=== PATIENT | female | born 1930 | race Caucasian/White ===

== ENCOUNTER 2016-09-13 22:38 | Emergency (ER) | payer MEDICARE, MEDICAID ==
[~2016-09-13] VITALS: Ht 157.5 cm; Wt 52.7 kg
[~2016-09-13 22:38] MED LIST: ALREX0.2 % OP; ARICEPT5 MG PO; CALCIUM +D PO; CALCIUM OR; CLONAZEP ODT1 MG OR; CLONAZEP ODT1 MG PO; CLONAZEPAM1 MG PO; CO Q10100 MG OR; COMBIVENT IN; COMBIVENT INH; ENALAPRIL10 MG PO; FLULAVAL IM; FLUZONE SPLT1 M1 IM; HYDROCHLORO25 MG/TAB PO; HYDROCHLOROT25 MG PO; HYDROCO/APAP1 TA9 PO; HYDROCO/APAP1 TAB PO; LEVOTHROID100 MCG PO; LEVOTHYROXIN100 MC1 PO; LEVOTHYROXIN75 MCG PO; LORTAB 5 PO; LORTAB 5/3255 MG PO; LORTAB5 OR; LUTEIN PO; PAROXETIN ER12.5 MG PO; PAROXETINE10 MG PO; PAXIL CR12.5 MG OR; PRAVASTATIN10 MG PO; RESTORIL30 MG OR; RESTORIL30 MG PO; TEMAZEPAM30 MG PO; TRAMADOL HCL100 MG PO; TRAMADOL HCL50 MG PO; TYLENOL # 31 TA1 PO; ULTRAM50 MG OR; ULTRAM50 MG PO; VYTORIN1 TA3 OR; ZOLOFT25 MG PO; [UNRECOGNIZED DRUG - CODE] PO; [UNRECOGNIZED DRUG - OTHER] OR
[2016-09-14 00:52] LABS: HEMATOCRIT 37.1 % (37.0-47.0); HEMOGLOBIN 11.7 g/dl (12.0-16.0); IMMATURE GRANULOCYTES 0.3 % (0.0-1.0); MEAN CELL VOLUME 94.2 fL CALC (80.0-100.0); MEAN CORPUSCULAR HGB 29.7 pG CALC (26.0-32.0); MEAN CORPUSCULAR HGB CONC 31.5 g/L CALC (32.0-36.0); NEUT# 4.03 thou/uL (2.00-7.15); RED BLOOD COUNT 3.94 mill/uL (4.20-5.60); RED CELL DISTRI WIDTH 13.4 % (11.5-15.5)
[2016-09-14 01:18] LABS: PROTHROMBIN TIME 10.7 SECONDS (9.0-12.5)
[2016-09-14 01:19] LABS: ALBUMIN 3.8 g/dL (3.2-5.0); BILIRUBIN, TOTAL 0.4 mg/dL (0.0-1.4); CALCIUM 9.2 mg/dL (8.4-10.2); CREATININE 1.4 mg/dL (0.5-1.0); POTASSIUM 3.7 mmol/l (3.5-5.1); TOTAL PROTEIN 6.4 g/dL (6.3-8.2)
[2016-09-14 06:45] VITALS: BP 165/84
== END 2016-09-14 07:02 | disposition home or self-care (01) ==
LOC: ED 22:38
PROVIDERS: Emergency Medicine
DX: R23.3 Spontaneous ecchymoses (principal); E78.5 Hyperlipidemia, unspecified; F32.9 Major depressive disorder, single episode, unspecified; E03.9 Hypothyroidism, unspecified; Z86.73 Personal history of transient ischemic attack (TIA), and cerebral infarction without residual deficits

== ENCOUNTER 2016-09-16 22:50 | Emergency (ER) | payer MEDICARE, MEDICAID ==
[~2016-09-16] VITALS: Ht 157.5 cm; Wt 52.7 kg
[2016-09-16 23:39] VITALS: BP 168/78
== END 2016-09-16 23:39 | disposition home or self-care (01) ==
LOC: ED 22:50
DX: S51.811A Laceration without foreign body of right forearm, initial encounter (principal); X58.XXXA Exposure to other specified factors, initial encounter; Y92.009 Unspecified place in unspecified non-institutional (private) residence as the place of occurrence of the external cause

== ENCOUNTER 2016-12-22 14:05 | Emergency (ER) | payer MEDICARE, MEDICAID ==
[~2016-12-22] VITALS: Ht 157.5 cm; Wt 59.0 kg
[2016-12-22] MEDS ORDERED: EC-NAPROSYN500 MG PO (15:20)
[2016-12-22 16:20] VITALS: BP 171/73
== END 2016-12-22 16:20 | disposition home or self-care (01) ==
LOC: ED 14:05
DX: S42.031A Displaced fracture of lateral end of right clavicle, initial encounter for closed fracture (principal); E78.5 Hyperlipidemia, unspecified; F32.9 Major depressive disorder, single episode, unspecified; E03.9 Hypothyroidism, unspecified; W01.0XXA Fall on same level from slipping, tripping and stumbling without subsequent striking against object, initial encounter; Y92.009 Unspecified place in unspecified non-institutional (private) residence as the place of occurrence of the external cause; Z86.73 Personal history of transient ischemic attack (TIA), and cerebral infarction without residual deficits

== ENCOUNTER 2017-03-03 14:36 | Observation (INO) | payer MEDICARE, MEDICAID ==
[~2017-03-03] VITALS: Ht 165.1 cm; Wt 42.3 kg
[~2017-03-03 14:36] MED LIST changes: +EC-NAPROSYN500 MG PO
--- NOTE | 2017-03-03 14:45 | NUR ---
PT ARRIVES TO ROOM WITH LEFT ARM NUMBNESS, WEAKNESS, R/O CVA. PT TO CT IMMEDIATELY, BACK TO ROOM WHERE IV WAS ESTABLISHED TO LEFT NECK, BLOOD DRAWN. STROKE ALERT CALLED.
[2017-03-03 15:27] LABS: HEMATOCRIT 37.3 % (37.0-47.0); HEMOGLOBIN 11.7 g/dl (12.0-16.0); IMMATURE GRANULOCYTES 0.4 % (0.0-1.0); MEAN CELL VOLUME 95.4 fL CALC (80.0-100.0); MEAN CORPUSCULAR HGB 29.9 pG CALC (26.0-32.0); MEAN CORPUSCULAR HGB CONC 31.4 g/L CALC (32.0-36.0); NEUT# 4.74 thou/uL (2.00-7.15); RED BLOOD COUNT 3.91 mill/uL (4.20-5.60); RED CELL DISTRI WIDTH 13.5 % (11.5-15.5)
[2017-03-03 15:44] LABS: INTERNATIONAL NORMALIZED RATIO 0.9 RATIO (0.7-1.3); PROTHROMBIN TIME 10.4 SECONDS (9.0-12.5)
[2017-03-03 16:07] LABS: CALCIUM 9.5 mg/dL (8.4-10.2); CREATININE 1.5 mg/dL (0.5-1.0); POTASSIUM 4.3 mmol/l (3.5-5.1)
[2017-03-03] MEDS ORDERED: ARICEPT5 MG PO (16:27)
[2017-03-03] MEDS ORDERED: CLONAZEPAM1 MG PO (16:30)
[2017-03-03] MEDS ORDERED: NAMENDA10 MG PO (16:31)
--- NOTE | 2017-03-03 16:40 | NUR ---
SBAR PRINTED TO FLOOR
--- NOTE | 2017-03-03 16:47 | NUR ---
DTR IN LAW CONTACTED BY PHONE TO UPDATE HER AND HER LISETTE (SON). THEY WILL BE IN TO VISIT LATER ON TONIGHT. PT IS FULLY ALERT NOW, ASKS HOW SHE GOT HERE AND WHO CALLED AMBULANCE.
[2017-03-03 17:02] LABS: URINE BILIRUBIN - DIPSTICK NEGATIVE (NEGATIVE); URINE BLOOD DIPSTICK TRACE-INTACT (NEGATIVE); URINE COLOR YELLOW; URINE GLUCOSE - DIPSTICK NEGATIVE (NEGATIVE); URINE KETONE NEGATIVE (NEGATIVE); URINE LEUK ESTERASE NEGATIVE (NEGATIVE); URINE NITRITE - DIPSTICK NEGATIVE (Negative); URINE PROTEIN - DIPSTICK NEGATIVE (NEG-TRACE); URINE UROBILINOGEN - DIPSTICK 0.2 E.U./dL (0.2)
[2017-03-03 17:05] LABS: URINE CLARITY CLEAR
--- NOTE | 2017-03-03 17:20 | NUR ---
Admission Note Report Given to: SBAR PRINTED TO FLOOR Transported by: Wheelchair X Stretcher Transported with: X Nurse Transporter X Patent IV O2 X Fishing Tool Operator
[2017-03-03 17:25] VITALS: BP 186/94
--- NOTE | 2017-03-03 17:25 | NUR ---
PT ON FLOOR VIA STRETCHER WITH DIAZ DUNHAM AT 1725. PT AMBULATED TO BED. PT ORIENTED TO ROOM AND CALL LIGHT SYSTEM. PT EDUCATED ON CALLING FOR ASSISTANCE. NO COMPLAINTS OF PAIN FROM PT. PT STATES "I DON'T KNOW WHY I'M HERE". PT REORIENTED NEEDED. SAFETY PRECAUTIONS IN PLACE. BED ALARM ON. CALL LIGHT WITHIN REACH. WILL CONTINUE TO MONITOR.
--- NOTE | 2017-03-03 17:39 | NUR ---
PT TAKEN TO ROOM 271, CONTINUES TO REPEAT SAME QUESTIONS, DOES NOT WANT TO STAY THE NIGHT.
[2017-03-03 18:55] VITALS: BP 110/55
--- NOTE | 2017-03-03 19:27 | NUR ---
REPORT GIVEN TO SAAD OVALLES. NO ACUTE CHANGES IN PT CONDITION AT THIS TIME. SPOKE TO FAMILY, FAMILY NOW AT BEDSIDE. IV PATENT. TELE IN PLACE. SAFETY PRECAUTIONS REINFORCED. BED ALARM ON. CALL LIGHT WITHIN REACH.
--- NOTE | 2017-03-03 21:32 | NUR ---
B/P 187/90, HR 66, HYDRALAZINE 10MG IV GIVEN BY ONDINA PERALES. WILL CONTINUE TO MONITOR.
--- NOTE | 2017-03-03 21:43 | NUR ---
PT IN BED A/O TO SELF AND PLACE, ORIENTED TO TIME AND DATE. C/O BACK AND LEFT JAW PAIN 09/17, MEDICATED WTIH LORTAB 5MG. STRONG HAND SHROUD LINE TIER, STRON LEG STRENGTH, NO FACIAL DROOPING. BED ALARM IN PLACE, ENCOURAGED TO USE CALL LIGHT FOR ASSISTANCE.
[2017-03-03 23:55] VITALS: BP 102/71
--- NOTE | 2017-03-04 | NUR ---
PT IN BED WITH EYES CLOSED RESPIRATIONS EVEN AND UNLABORED, IV FLUIDS NS INFUSING TO LEFT EJ AT 80CC/HR. BED ALARM IN PLACE.
[2017-03-04 04:30] VITALS: BP 160/86
--- NOTE | 2017-03-04 04:30 | NUR ---
OOB TO BSC WITH MINIMAL ASSISTANCE, VOIDING 600CC DARK YELLOW URINE, BACK TO BED. RESPIRATIONS EVEN AND UNLABORED. A/O TO SELF AND PLACE. CALL LIGHT IN REACH.
[2017-03-04 06:03] LABS: HEMATOCRIT 33.1 % (37.0-47.0); HEMOGLOBIN 10.4 g/dl (12.0-16.0); MEAN CELL VOLUME 96.2 fL CALC (80.0-100.0); MEAN CORPUSCULAR HGB 30.2 pG CALC (26.0-32.0); MEAN CORPUSCULAR HGB CONC 31.4 g/L CALC (32.0-36.0); RED BLOOD COUNT 3.44 mill/uL (4.20-5.60); RED CELL DISTRI WIDTH 13.4 % (11.5-15.5)
[2017-03-04 06:22] LABS: CALCIUM 8.9 mg/dL (8.4-10.2); CHOLESTEROL HDL RATIO 2.6 (<4.4 (CALC)); CREATININE 1.3 mg/dL (0.5-1.0); POTASSIUM 3.9 mmol/l (3.5-5.1)
[2017-03-04 08:00] VITALS: BP 147/74
--- NOTE | 2017-03-04 08:00 | NUR ---
ASSESSMENT IS COMPLETED: IV SITE IS FREE FROM REDNESS OR EDEMA. NO DISTRESS NOTED. CONTINUE TO OBSERVE AND MONITOR.
--- NOTE | 2017-03-04 09:15 | NUR ---
SPOKE WITH PT'S SON/ INQUIRED WHEN DR COMES IN AND IF PT BEING DISCHARGED. INFORMED THAT DR IS NOT HERE YET. AND PT'S SON HAS SOMETHING HE HAS TO DO TODAY. CONTINUE TO OSBERVE AND MONITOR.
[2017-03-04 11:30] VITALS: BP 154/81
--- NOTE | 2017-03-04 12:30 | NUR ---
PT IS AWAKE AND READY TO GO HOME. IV SITE IS FREE FROM REDNESS OR EDEMA. CONTINUE TO OSBERVE AND MONITOR.
[2017-03-04] MEDS ORDERED: AMLODIPINE BESYL5 MG PO (13:41)
--- NOTE | 2017-03-04 15:52 | NUR ---
PT IS CONCERNED ABOUT GOING HOME BUT DOESNOT WANT TO GO TO A REHAB. OR PENITENTIARY. SHE WANTS TO BE AT HOME WHERE SHE CAN BE INDEPENDENT. C/O LEFT JAW PAIN. GAVE MEDICATION. CONTINUE TO OSBERVE AND MONITOR.
--- NOTE | 2017-03-04 16:45 | NUR ---
PT IS IN BED WAITING FOR HER SON TO COME AND TAKE HER HOME. IV SITE INTACT. TELE MONITOR IN PLACE. CONTINUE TO OSBERVE AND MONITOR.
--- NOTE | 2017-03-04 17:05 | NUR ---
PT IS STATING " I AM BLEEDING RIGHT NOW, I AM WATCHING IT YOU NEED TO GET A DR". TRYING TO REDIRECT PT RE: SPOTS ON HER STARTED TO OMID AT STAFF CALLING THEM IDIOTS AND GET SOMEONE IN HERE WHO KNOWS WHAT I AM TALKING ABOUT.
--- NOTE | 2017-03-04 17:34 | NUR ---
PT'S FAMILY CALLED AND IS ON THEIR WAY. PT WANTS HER SON TO SEE HER ARMS "THE BLEEDING THEY ARE DOING". CONTINUE TO OSBERVE AND MONITOR.
--- NOTE | 2017-03-04 17:57 | NUR ---
IV SITE REMOVED BY Curly LLOYD RN. PT TOLERATED WELL. BIANCA TO OBSERVE AND MONITOR.
--- NOTE | 2017-03-04 18:21 | NUR ---
PT'S FAMILY INFORMED THIS MACHINERY RIGGER THAT PT HAS ALREADY HAD THE FLU SHOT IN DR HAILE'S OFFICE ALSO HAD PNEUMONIA VACCINE IN 2014 HERE AT THE HOSPITAL
--- NOTE | 2017-03-04 18:24 | NUR ---
PT TRANSPORTED TO SON'S CAR WITH DISCHARGE INSTRUCTIONS IN HAND. CONTINUE TO OBSERVE AND MONITOR.
--- NOTE | 2017-03-04 18:24 | NUR ---
Discharge instructions given. Patient verbalizes understanding of same. Discharged in stable condition via Wheelchair to Home with family. All belongings sent with pt.
== END 2017-03-04 18:15 | disposition home health service (06) ==
LOC: ED 14:36 → ED-I 16:30 → ED 17:10 → MS2 17:11
PROVIDERS: Family Medicine; ADMIT Internal Medicine; ATTEND Internal Medicine
DX: R20.0 Anesthesia of skin (principal); I10 Essential (primary) hypertension; E78.5 Hyperlipidemia, unspecified; F32.9 Major depressive disorder, single episode, unspecified; E03.9 Hypothyroidism, unspecified; F03.90 Unspecified dementia, unspecified severity, without behavioral disturbance, psychotic disturbance, mood disturbance, and anxiety; I73.9 Peripheral vascular disease, unspecified; N17.9 Acute kidney failure, unspecified; M19.042 Primary osteoarthritis, left hand; M19.041 Primary osteoarthritis, right hand; Z87.891 Personal history of nicotine dependence; Z95.820 Peripheral vascular angioplasty status with implants and grafts

== ENCOUNTER 2017-03-05 14:36 | Observation (INO) | payer MEDICARE, MEDICAID ==
[~2017-03-05] VITALS: Ht 165.1 cm; Wt 45.0 kg
[~2017-03-05 14:36] MED LIST changes: +AMLODIPINE BESYL5 MG PO; +NAMENDA10 MG PO
--- NOTE | 2017-03-05 14:46 | NUR ---
PT ALERT TO PLACE/TIME. DR. HAILE/DR CLIFTON IN SPEAKING WITH PT.
--- NOTE | 2017-03-05 16:34 | NUR ---
PT NOW WITH IV ESTABLISHED TO LEJ, SEEN TO HAVE LEFT ARM PAIN AND GENERALIZED CRAMPING OR STIFFENING EVERY 10 MINUTES OR SO FOR DURATION OF 1 MIN. SON AND DTR IN LAW AT BEDSIDE.
[2017-03-05 16:38] LABS: HEMATOCRIT 36.2 % (37.0-47.0); HEMOGLOBIN 11.2 g/dl (12.0-16.0); IMMATURE GRANULOCYTES 0.2 % (0.0-1.0); MEAN CELL VOLUME 96.8 fL CALC (80.0-100.0); MEAN CORPUSCULAR HGB 29.9 pG CALC (26.0-32.0); MEAN CORPUSCULAR HGB CONC 30.9 g/L CALC (32.0-36.0); NEUT# 4.07 thou/uL (2.00-7.15); RED BLOOD COUNT 3.74 mill/uL (4.20-5.60); RED CELL DISTRI WIDTH 13.4 % (11.5-15.5)
[2017-03-05 16:39] LABS: ALBUMIN 3.9 g/dL (3.2-5.0); ALKALINE PHOSPHATASE 66 u/l (38-126); ANION GAP 12 (6-22 (CALC)); BILIRUBIN, TOTAL 0.5 mg/dL (0.0-1.4); BUN 31 mg/dL (8-23); BUN/CREATININE RATIO 25 (12-20 (CALC)); CALCIUM 9.1 mg/dL (8.4-10.2); CARBON DIOXIDE 32 mmol/l (22-30); CHLORIDE 107 mmol/l (95-108); CREATININE 1.2 mg/dL (0.5-1.0); GFR 43 ML/MIN (>=60 (CALC)); GFR FOR AFR.AMER. 52 ML/MIN (>=60 (CALC)); GLUCOSE 102 mg/dL (82-115); LIPASE 258 u/l (23-300); SGOT/AST 20 u/l (9-36); SGPT/ALT 22 u/l (11-66); SODIUM 147 mmol/l (137-146); TOTAL PROTEIN 6.4 g/dL (6.3-8.2)
[2017-03-05 16:43] LABS: ETHYL ALCOHOL 0 mg/dl (0-30)
[2017-03-05 16:51] LABS: MYOGLOBIN 112 ng/mL (0 - 62)
--- NOTE | 2017-03-05 17:10 | NUR ---
SBAR PRINTED TO FLOOR
--- NOTE | 2017-03-05 18:20 | NUR ---
FROM ER VIA STRETCHER ACCOMPANIED BY ROLY PERALES. RESPS EVEN AND UNLABORED ON O2 VIA NC, TELE MONITOR IN PLACE. AMBULATES TO BED WITH UNSTEADY GAIT. REFUSES TO CHANGE INTO GOWN. #20 LEJ APPEARS HEALTHY, DRESSING CDI. DINNER TRAY PROVIDED AND ASSISTED WITH SET UP. ORIENTED TO ROOM AND CALL SYSTEM. SAFETY PRECAUTIONS REINFORCED. BED IN LOWEST POSITION WITH WHEELS LOCKED. BED ALARM ON FOR SAFETY. CALL LIGHT WITHIN REACH. ENCOURAGED PT TO CALL FOR ANY NEEDS.
--- NOTE | 2017-03-05 18:25 | NUR ---
PT TAKEN TO ROOM 271. REPORT WAS TO VISH Merida RN.
[2017-03-05 19:11] LABS: URINE BILIRUBIN - DIPSTICK NEGATIVE (NEGATIVE); URINE BLOOD DIPSTICK NEGATIVE (NEGATIVE); URINE CLARITY CLEAR; URINE COLOR YELLOW; URINE GLUCOSE - DIPSTICK NEGATIVE (NEGATIVE); URINE KETONE NEGATIVE (NEGATIVE); URINE LEUK ESTERASE NEGATIVE (NEGATIVE); URINE NITRITE - DIPSTICK NEGATIVE (Negative); URINE PH 5.5 (4.5-8.0); URINE PROTEIN - DIPSTICK NEGATIVE (NEG-TRACE); URINE SPECIFIC GRAVITY 1.025; URINE UROBILINOGEN - DIPSTICK 0.2 E.U./dL (0.2)
[2017-03-05 19:20] LABS: BARBITURATES NEGATIVE (NEGATIVE); COCAINE NEGATIVE (NEGATIVE); METHADONE NEGATIVE (NEGATIVE); OXCYCODONE NEGATIVE (NEGATIVE); TETRAHYDROCANNABIONOL NEGATIVE (NEGATIVE); TRICYLIC ANTIDEPRESSANTS NEGATIVE (NEGATIVE)
--- NOTE | 2017-03-05 21:12 | NUR ---
PT C/O PAIN TO HER L JAW STATES DUE TO ARTHRITIS. NO SIGNS OF DISTRESS NOTED, RESP EVEN AND UNLABORED. WARM COMPRESS GIVEN AND MD CALLED FOR ORDERS. TRAMADOL ORDERS RECEIVED.
--- NOTE | 2017-03-06 01:00 | NUR ---
PT RESTING IN BED WITH EYES CLOSED, NO SIGNS OF DISTRESS NOTED, RESP EVEN AND UNLABORED. BED ALARM ACTIVE, CALL LIGHT IN REACH,CONTINUE TO MONITOR.
--- NOTE | 2017-03-06 03:56 | NUR ---
PT RESTING IN BED WITH EYES CLOSED, NO SIGNS OF DISTRESS NOTED, RESP EVEN AND UNLABORED. CALL LIGHT IN REACH, BED ALARM ACTIVE, CONTINUE TO MONITOR.
[2017-03-06 04:38] VITALS: BP 125/68
--- NOTE | 2017-03-06 07:45 | NUR ---
PT ASSISTED TO RECLINER; AND ASSISTED TO CHAIR; BED ALARM IN PLACE FOR SAFETY; PT ALERT ORIENTED TO NAME AND PLACE; REORIENTATION TO MONTH AND YEAR UNSUCCESFUL; CALL HERRERA WITHIN REACH; WILL CONTINUE TO MONITOR.
[2017-03-06 07:53] VITALS: BP 142/79
[2017-03-06 08:58] LABS: HEMATOCRIT 36.1 % (37.0-47.0); IMMATURE GRANULOCYTES 0.2 % (0.0-1.0); MEAN CELL VOLUME 98.1 fL CALC (80.0-100.0); MEAN CORPUSCULAR HGB 29.9 pG CALC (26.0-32.0); MEAN CORPUSCULAR HGB CONC 30.5 g/L CALC (32.0-36.0); NEUT# 2.94 thou/uL (2.00-7.15); RED BLOOD COUNT 3.68 mill/uL (4.20-5.60); RED CELL DISTRI WIDTH 13.7 % (11.5-15.5)
[2017-03-06 09:26] LABS: CALCIUM 9.2 mg/dL (8.4-10.2); CREATININE 1.3 mg/dL (0.5-1.0); MAGNESIUM 1.7 mg/dL (1.6-2.3); POTASSIUM 4.4 mmol/l (3.5-5.1)
--- NOTE | 2017-03-06 12:30 | NUR ---
PT ASSISTED BACK TO BED; BED ALARM IN PLACE; CALL HERRERA WITHIN REACH; WILL CONTINUE TO MONITOR.
--- NOTE | 2017-03-06 14:37 | NUR ---
PT RESTING WITH EYES CLOSED; NO S/SX OF DISTRESS NOTED; BED ALARM IN PLACE FOR SAFETY; CALL HERRERA WITHIN REACH; WILL CONTINUE TO MONITOR.
--- NOTE | 2017-03-06 15:43 | NUR ---
PT ASSISTED TO BRP; MEDICATED ORDERED FOR C/O JAW PAIN; CALL HERRERA WITHIN REACH; WILL CONTINUE TO MONITOR.
[2017-03-06 15:47] VITALS: BP 110/59
--- NOTE | 2017-03-06 16:12 | NUR ---
Talked to pt. about her new medications and explained side effects of her new medications. Pt. complained about medications not helping her symptoms. Told pt. that medications take sometimes to relieve her symptoms. Pt. said have jaw pain but have not had any pain medication for her jaw's pain. Informed the nurse about the pain medication pt. requested. Patient did not have any other questions at this time.
--- NOTE | 2017-03-06 16:12 | NUR ---
MEDICATED FOR JAW PAIN 11/17; CALL HERRERA WITHIN REACH; WILL CONTINUE TO MONITOR.
--- NOTE | 2017-03-06 19:00 | NUR ---
RECEIVED CHANGE OF SHIFT REPORT FROM DIAZ PINO. PATIENT LYING IN BED AND APPEARS NOT TO BE IN ANY APPARENT ACUTE DISTRESS. C/O PAIN TO TO RT NECK AT SITE. WILL CONTINUE TO MONITOR.
--- NOTE | 2017-03-06 19:00 | NUR ---
RECEIVED CHANGE OF SHIFT REPORT FROM SAAD MONCADA. PATIENT LYING IN BED AND APPEARS NOT TO BE IN ANY APPARENT ACUTE DISTRESS OR DISCOMFORT. DENIES PAIN. ALERT AND ORIENTED TO NAME AND PLACE. WILL CONTINUE TO MONITOR.
--- NOTE | 2017-03-06 20:10 | NUR ---
INSTRUCTED PT ON PULLING OF EJ ACCESS. IV PULLED. TIP CAME OUT INTACT. PT STATED "IT FEELS MUCH BETTER NOW"
--- NOTE | 2017-03-06 20:51 | NUR ---
ASSISTED PT OOB TO BSC. PT UNSTEADY ON FEET. VOIDED 200 CC CLEAR YELLOW URINE. ASSISTED PT BACK TO BED. BED IN LOW POSITION AND CALL LIGHT IN REACH.
[2017-03-06 21:36] VITALS: BP 113/59
--- NOTE | 2017-03-07 | NUR ---
PATIENT IS RESTING WITH EYES CLOSED AND APPEARS TO BE ASLEEP. RESPIRATION EVEN AND UNLABORED. NO APPARENT ACUTE DISTRESS NOTED.
[2017-03-07 04:00] VITALS: BP 132/70
--- NOTE | 2017-03-07 04:00 | NUR ---
NO APPARENT ACUTE CHANGES NOTED IN PT'S CONDITION
[2017-03-07 05:13] LABS: CREATININE 1.1 mg/dL (0.5-1.0); MAGNESIUM 1.7 mg/dL (1.6-2.3); POTASSIUM 4.6 mmol/l (3.5-5.1)
[2017-03-07 05:17] LABS: HEMATOCRIT 35.7 % (37.0-47.0); IMMATURE GRANULOCYTES 0.2 % (0.0-1.0); MEAN CELL VOLUME 97.3 fL CALC (80.0-100.0); MEAN CORPUSCULAR HGB CONC 30.8 g/L CALC (32.0-36.0); NEUT# 2.99 thou/uL (2.00-7.15); RED BLOOD COUNT 3.67 mill/uL (4.20-5.60); RED CELL DISTRI WIDTH 13.6 % (11.5-15.5)
--- NOTE | 2017-03-07 07:22 | NUR ---
REPORT RECEIVED FROM DIAZ MENDEZ. PT SUPINE IN BED. REPORTS BEING "PESTERED" SINCE 429 THIS AM. PLAN OF CARE AND MONITORING OF CONDITION REINFORCED. PT STATES UNDERSTANDING. REPORTING OF CONCERNS ENCOURAGED. FALL PRECAUTIONS REINFORCED. CALL LIGHT REVIEWED AND IN REACH. BED ALARM SET FOR SAFETY.
[2017-03-07 07:29] VITALS: BP 150/77
--- NOTE | 2017-03-07 13:31 | NUR ---
PT SITTING UPRIGHT IN BED. DENIES PAIN. PT'S SON AND [id number] AT BEDSIDE. NO COMPLAINTS.
--- NOTE | 2017-03-07 14:40 | NUR ---
PT COMPLAINS "MY HANDS ARE ASLEEP." HANDS WARM, FULL ROM AND SENSATION. HANDS ELEVATED ON PILLOWS. PT CRYING, WHEN QUESTIONED ON REASON WHY, PT STATES "I DONT KNOW, I HAVE ALL THESE FEELINGS." EMOTIONAL COMFORT PROVIDED, UNTIL PT FELL ASLEEP. WILL CONTINUE TO MONITOR.
[2017-03-07 19:20] VITALS: BP 123/66
--- NOTE | 2017-03-07 19:30 | NUR ---
PATIENT RESTING IN BED AT THIS TIME WITH HOB ELEVATED. AWAKE AND ORIENTED TO PERSON ONLY. PATIENT C/O JAW PAIN-TOO EARLY FOR PAIN MEDS AT THIS TIME. HEP LOCK TO RIGHT AC-APPEARS HEALTHY AT THIS TIME. BED ALARM IN PLACE FOR PATIENT SAFETY. CALL LIGHT IN REACH. WILL CONT TO MONITOR.
--- NOTE | 2017-03-07 21:15 | NUR ---
PATIENT RESTING IN BED-C/O JAW PAIN-MEDICATED WITH LORTAB ORDERED FOR PAIN. MEDICATED FOR SLEEP WITH KLONOPIN. BED ALARM IN PLACE FOR PATIENT SAFETY. CALL LIGHT IN REACH. WILL CONT TO MONITOR.
--- NOTE | 2017-03-07 23:31 | NUR ---
APPEARS SLEEPING AT THIS TIME WITH EYES CLOSED. BED ALARM IN PLACE FOR PATIENT SAFETY. CALL LIGHT IN REACH. WILL CONT TO MONITOR
--- NOTE | 2017-03-08 00:39 | NUR ---
PATIENT WITH NON-PRODUCTIVE COUGH-C/O LEFT JAW PAIN. EXPLAINED THAT IT IS TOO EARLY FOR PAIN MEDS AT THIS TIME. PATIENT MIN ASSIST TO THE BSC TO VOID KAYLEEN URINE AND ASSISTED BACK TO THE BED. REASSURANCE OFFERED. CALL LIGHT IN REACH. WILL CONT TO MONITOR.
[2017-03-08 03:29] VITALS: BP 149/76; BP 162/70
--- NOTE | 2017-03-08 03:48 | NUR ---
PATIENT ASSISTED TO BSC-UNSTEADY ON HER FEET. PATIENT VOIDED KAYLEEN URINE AND ASSISTED BACK TO BED. PATIENT IS ORIENTED TO PERSON AND PLACE AT THIS TIME. SAFETY PRECAUTIONS REINFORCED. BED ALARM IN PLACE FOR PATIENT SAFETY. CALL LIGHT IN REACH. WILL CONT TO MONITOR.
[2017-03-08 08:12] VITALS: BP 152/79
--- NOTE | 2017-03-08 10:20 | NUR ---
PT.MEDICATED W/AM MEDICATIONS ORDERED, PT.C/O PAIN IN JAW, PT.HAS BEEN MEDICATED FOR PAIN. SHE ASKED THREE TIMES WHILE IN THE ROOM IF I CAN POSSIBLY FIND OUT WHY HER JAW KEEPS HURTING WHEN SHE EATS OR TALKS. SHE ANSWERS QUESTIONS CORRECTLY REGARDING SELF ID AND PRESENT SITUATION, BUT SEEMS TO HAVE SHORT TERM MEMORY REGARDING PAIN, MEDICATIONS AND WHAT IS HAPPENING WHILE I'M IN THE ROOM. SHE REPEATS HERSELF MULTIPLE TIMES AND ASKS THE SAME QUESTIONS REPEATEDLY W/IN A 5 MINUTE PERIOD. DENIES ANY OTHER NEEDS AT THIS TIME. CALL LIGHT W/IN REACH AND PT.REINSTRUCTED TO CALL IF SHE NEEDS ANYTHING
--- NOTE | 2017-03-08 13:40 | NUR ---
PT.C/O OF AND MEDICATED FOR PAIN 10/10 IN LEFT ARM. AND CARA CARROLL ARE AT BEDSIDE W/PT. WILL REACCESS PAIN. BED ALARM IS ON AND CALL LIGHT AT BEDSIDE
--- NOTE | 2017-03-08 16:14 | NUR ---
PATIENT STATES THAT SHE LIVES ALONE AND CAN CARE FOR HERSELF. SHE AMB WITHOUT ANY A.D. BUT DOES HAVE A WALKER AT HOME, THAT SHE NEVER USES. ATTMEPTED [facility] WITHOUT A.D. BUT PATIENT NOT STEADY WITH R LE ER/ABD AND F- BALANCE. RW THEN USED WITH SAFE AMB 100 FT X 2. REQUIRED T.C. FOR HAND PALCEMENT AND SAFETY WITH STAND TO SIT. PATIENT REQUESTING UP IN CHAIR. CALL HERRERA AND TRAY TABLE IN REACH.
--- NOTE | 2017-03-08 16:34 | NUR ---
PT.IS UPRIGHT IN RECLINER AT THIS TIME. SHE AMBULATED HALLWAY W/P.T. CALL LIGHT AND BED ALARM IN PLACE
[2017-03-08 16:40] VITALS: BP 133/66
--- NOTE | 2017-03-08 18:55 | NUR ---
PT.OFF THE UNIT FLOOR ACCOMPANIED BY STAFF MEMBER AND MEDICAL MANAGER VIA W.C. IN GOOD CONDITION. IV HAS BEEN REMOVED, SITE HAS SLIGHT BRUISING AT SIGHT, BUT OTHERWISE APPEARS HEALTHY.
== END 2017-03-08 18:50 ==
LOC: ED 14:36 → ED-I 15:21 → ED 15:21 → ED-I 16:41 → ED 17:10 → MS2 17:11
PROVIDERS: Emergency Medicine; Nurse Practitioner Family; ADMIT Internal Medicine; ATTEND Internal Medicine
DX: F03.91 Unspecified dementia, unspecified severity, with behavioral disturbance (principal); I16.0 Hypertensive urgency; E03.9 Hypothyroidism, unspecified; I73.9 Peripheral vascular disease, unspecified; R64 Cachexia; D64.9 Anemia, unspecified; I12.9 Hypertensive chronic kidney disease with stage 1 through stage 4 chronic kidney disease, or unspecified chronic kidney disease; N18.9 Chronic kidney disease, unspecified; N17.9 Acute kidney failure, unspecified; E86.0 Dehydration; Z68.1 Body mass index [BMI] 19.9 or less, adult; Z95.820 Peripheral vascular angioplasty status with implants and grafts; Z87.891 Personal history of nicotine dependence
CPT/HCPCS: J2060

== ENCOUNTER 2017-03-22 11:47 | Emergency (ER) | payer MEDICARE, MEDICAID ==
[~2017-03-22] VITALS: Ht 165.1 cm; Wt 40.0 kg
[2017-03-22 16:09] VITALS: BP 115/68
[2017-03-22] MEDS ORDERED: AMOXICILLIN500 MG PO (16:25)
== END 2017-03-22 16:25 | disposition left against medical advice (07) ==
LOC: ED 11:47
PROC: 0HQFXZZ Repair Right Hand Skin, External Approach (ICD-10-PCS; principal; 2017-03-22)
PROC: 0HQDXZZ Repair Right Lower Arm Skin, External Approach (ICD-10-PCS; 2017-03-22)
DX: S00.03XA Contusion of scalp, initial encounter (principal); S51.811A Laceration without foreign body of right forearm, initial encounter; S51.011A Laceration without foreign body of right elbow, initial encounter; S61.212A Laceration without foreign body of right middle finger without damage to nail, initial encounter; S61.214A Laceration without foreign body of right ring finger without damage to nail, initial encounter; W18.30XA Fall on same level, unspecified, initial encounter; Y93.E8 Activity, other personal hygiene; Y92.002 Bathroom of unspecified non-institutional (private) residence as the place of occurrence of the external cause; Z91.19 Patient's noncompliance with other medical treatment and regimen

== ENCOUNTER 2017-04-12 21:55 | Emergency (ER) | payer MEDICARE, MEDICAID ==
[~2017-04-12] VITALS: Ht 149.9 cm; Wt 39.5 kg
[~2017-04-12 21:55] MED LIST changes: +AMOXICILLIN500 MG PO
[2017-04-12] MEDS ORDERED: NAPROSYN250 MG PO (22:46)
[2017-04-12 23:15] VITALS: BP 132/88
== END 2017-04-12 23:42 | disposition home or self-care (01) ==
LOC: ED 21:55
DX: S43.401A Unspecified sprain of right shoulder joint, initial encounter (principal); W07.XXXA Fall from chair, initial encounter; Y92.009 Unspecified place in unspecified non-institutional (private) residence as the place of occurrence of the external cause

== ENCOUNTER 2017-06-03 12:46 | Inpatient (IN) | payer MEDICARE, MEDICAID ==
[~2017-06-03] VITALS: Ht 149.9 cm; Wt 41.0 kg
[2017-06-03] VITALS (12 sets, daily range): BP systolic 77–138; BP diastolic 45–114
[~2017-06-03 12:46] MED LIST changes: +NAPROSYN250 MG PO
--- NOTE | 2017-06-03 13:05 | NUR ---
PT ARRIVED TO ER ROOM 15 BY EMS. IN ROOM. UNABLE TO DETEREMINE O2 STAT, AWARE. C-COLLAR PLACED ON PTS NECK, MD REMOVED BACKBOARD.
--- NOTE | 2017-06-03 13:15 | NUR ---
CLEANED AND DERMABOND MULTIPLE SKIN TEARS ON BELLE ARMS AND HANDS. PT TOLERATED WELL.
--- NOTE | 2017-06-03 13:30 | NUR ---
IV IN LAC INFILTRATED, DR. DE LA VEGA IS TO DO A CENTRAL LINE. VERBAL CONSENT FROM PT TAKEN.
--- NOTE | 2017-06-03 13:55 | NUR ---
AFTER TWO ATTEMPTS FROM DR. DE LA VEGA ON CENTRAL LINE PLACEMENT, IT WAS UNOBTAINABLE. DRESSING APPLIED AND CCOLLAR PUT BACK IN PLACE. IV FLUIDS INFUSING IN #24 IN LOWER LEFT LEG.
[2017-06-03 14:08] LABS: IMMATURE GRANULOCYTES 0.3 % (0.0-1.0); MEAN CORPUSCULAR HGB 26.5 pG CALC (26.0-32.0); MEAN CORPUSCULAR HGB CONC 30.5 g/L CALC (32.0-36.0); RED BLOOD COUNT 3.21 mill/uL (4.20-5.60); RED CELL DISTRI WIDTH 16.7 % (11.5-15.5)
--- NOTE | 2017-06-03 14:10 | NUR ---
TRIED TO CATH PT, UNABLE TO OBTAIN ANY URINE. CHARGE NURSE ALBERTO ATTEMPTED TO CATH WITH NO SUCCESS.
[2017-06-03 14:33] LABS: INFLUENZA A NONE DETECTED (NONE DETECT); INFLUENZA B NONE DETECTED (NONE DETECT)
[2017-06-03 14:42] LABS: ALBUMIN 3.7 g/dL (3.2-5.0); POTASSIUM 4.4 mmol/l (3.5-5.1); TOTAL PROTEIN 6.6 g/dL (6.3-8.2)
[2017-06-03 14:43] LABS: BILIRUBIN, TOTAL 0.8 mg/dL (0.0-1.4); CREATININE 2.9 mg/dL (0.5-1.0)
[2017-06-03 14:44] LABS: HEMATOCRIT 27.9 % (37.0-47.0); MEAN CELL VOLUME 86.9 fL CALC (80.0-100.0)
[2017-06-03 14:45] LABS: BAND 56 % (0-8); MANUAL DIFFERENTIAL YES
[2017-06-03 14:46] LABS: HEMOGLOBIN 8.5 g/dl (12.0-16.0)
[2017-06-03 14:47] LABS: PLATELET COUNT 337 thou/uL (130-400)
--- NOTE | 2017-06-03 15:14 | NUR ---
PT BACK FROM CT. SCAN, WILL DO XRAYS HERE IN ER.
--- NOTE | 2017-06-03 15:25 | NUR ---
VANCOMYACYN INFUSING IN 24 IV SITE. NS INFUSING IN IO
--- NOTE | 2017-06-03 15:27 | NUR ---
1452 IO TO LEFT BELOW KNEE ACCESSED, 50 MG OF 2& LIDOCAINE INJECTED, THEN FLUIDS BEGUN.
--- NOTE | 2017-06-03 15:32 | NUR ---
PT UNABLE TO ANSWER ANY QUESTIONS ON MEDICATIONS, NO NEW LIST AVAILABLE.
--- NOTE | 2017-06-03 16:04 | NUR ---
NIECE JUST SHOWED UP AND STATED, SHE WAS THE ONE THAT FOUND HER ON THE FLOOR THIS AM WITH THE SKIN TEARS. SHE STATES THE BRUISE FROM THE RIGHT HIP WAS FROM DAYS AGO WHEN SHE FELL. STATES PT IS VERY AGAINST GOING INTO A [facility], STATES THAT THERE IS A LADY THAT COMES INTO HELP HER 4 HOURS A DAY THRU THE WEEK.
--- NOTE | 2017-06-03 16:09 | NUR ---
NOTIFIED OF BLOOD PRESSURE, NO NEW ORDERS JUST KEEP INFUSING THE NORMAL SALINE.
--- NOTE | 2017-06-03 16:51 | NUR ---
BLOOD PRESSURE 86/56 HEART RATE IN THE 90'S
--- NOTE | 2017-06-03 16:51 | NUR ---
CENTRAL LINE FEMORAL PLACEMENT PER DR. DE LA VEGA.
--- NOTE | 2017-06-03 17:13 | NUR ---
[facility] CONTACTED AND COMPLAINT SUBMITTED ON LINE REGARDING POOR CONDITION OF PT UPON ARRIVAL TO ER FROM HOME.
[2017-06-03 17:44] LABS: PROTHROMBIN TIME 11.5 SECONDS (9.0-12.5)
--- NOTE | 2017-06-03 17:58 | NUR ---
female pt received to ICU bed 1 via stretcher accompanied by Kishor Conway RN; pt transferred to bed x 3 staff; weight ontained via bed scale; admission assessment completed at this time; pt is a poor historian/unable to answer sone questions accurately/appropriately; past history obtained via sbar and last admission; pt alert to person and place; unable to state month or year; oral mucosa noted pale and very dry; resp even and unlabored/shallow; lungs clear throughout; skin color pale; o2 per nc at 2L; no cough noted; hr reg; murmur noted; weak pedal pulses; no edema noted; sr on monitor; abd soft with bs present; pt cleansed of lg amount dry fecal content matted to buttocks/ rectum/ post thighs; no urine to inspect at this time; #24 saline locked present top left leg/ IO saline locked present to left leg; TLC intact to right femoral vein with levophed infusing at 3mcg/min/ titrated to 4mcg/min; all lumens flushed and patent with brisk blood return; lg bruise noted to right ant/lat thigh; ecchymosis and numerous skin tears noted to ble with dermabond intact; pic obtained and placed on chart; pt admits to living alone; plan of care explained; pt oriented to bed and call light system; will continue to monitor closely
--- NOTE | 2017-06-03 18:07 | NUR ---
PT TAKEN TO ICU FOR CONTINUATION OF CARE
--- NOTE | 2017-06-03 18:37 | NUR ---
awake; iv's patent; no distress noted; sr/st on monitor; admits to last weight 110 lbs 3 weeks ago; informed of weight lost; bed in lowest position; call light within reach
--- NOTE | 2017-06-03 18:50 | NUR ---
REPORT FROM Crow PATTEN RN. ASSUMED PT. CARE.
--- NOTE | 2017-06-03 20:05 | NUR ---
PT. RESTING IN BED. LEVOPHED DRIP INCREASED TO 5 MCG. BP 90/47 AT THIS TIME. WILL CONTINUE TO ASSESS. PT. ORIENTED TO PERSON ONLY AT THIS TIME. MADE AWARE. PT. REFUSING SC HEPARIN INJECTION. NEW ORDERS RECEIVED. NO EDEMA NOTED. MULTIPLE SKIN TEARS. SCANT OOZING FROM SOME AREAS OF SKIN TEAR BUT FAIRLY WELL APPROXIMATED. RESPS EVEN, SHALLOW, UNLABORED. REORIENTED TO SITUATION. CALL PLACED TO SON, UPDATED ON PT. CONDITION AND REFUSAL OF SOME TREATMENTS SUCH MEDS AND TRANSFUSIONS. PER SON, OK TO WITHOLD PER PATIENT REQUEST. PT. DENIES COMPLAINTS OF PAIN. PROVIDED WITH WATER AT THIS TIME. REMAINS STABLE. CALL LIGHT REMAINS WITHIN REACH.
[2017-06-03 20:46] LABS: HEMATOCRIT 23.4 % (37.0-47.0); HEMOGLOBIN 7.1 g/dl (12.0-16.0); IMMATURE GRANULOCYTES 0.3 % (0.0-1.0); MEAN CORPUSCULAR HGB 26.4 pG CALC (26.0-32.0); MEAN CORPUSCULAR HGB CONC 30.3 g/L CALC (32.0-36.0); PLATELET COUNT 272 thou/uL (130-400); RED BLOOD COUNT 2.69 mill/uL (4.20-5.60); RED CELL DISTRI WIDTH 16.7 % (11.5-15.5)
[2017-06-03 20:54] LABS: MANUAL DIFFERENTIAL YES
[2017-06-03 21:05] LABS: BAND 55 % (0-8); HYPOCHROMIA MODERATE
[2017-06-03 21:06] LABS: ANISOCYTOSIS FEW
--- NOTE | 2017-06-03 21:55 | NUR ---
PT. RESTING IN BED IN NO DISTRESS. CALL LIGHT REMAINS WITHIN REACH. RESPS EVEN AND UNLABORED. PT. REMAINS SOMEWHAT UNCOOPERATIVE WITH CARE. REORIENTED TO SITUATION. BP REMAIN STABLE ON 5 MCG/MIN LEVOPHED.
--- NOTE | 2017-06-03 23:35 | NUR ---
PT. MEDICATED PER PHYSICIAN ORDERS WITH SLEEPING PILL. REMAINS AFEBRILE. CALL LIGHT REMAINS WITHIN REACH. IV ANTIBIOTIC INFUSED AT THIS TIME. NO REACTIONS NOTED. LEVOPHED DRIP INFUSING TO RT. GROIN TRIPLE LUMEN WITHOUT ISSUE. CALL LIGHT REMAINS WITHIN REACH.
[2017-06-04] VITALS (22 sets, daily range): BP systolic 66–113; BP diastolic 33–60
--- NOTE | 2017-06-04 00:53 | NUR ---
PT. REMAINS AWAKE, ALERT, CONFUSED. LEVOPHED DRIP CONTINUES AT 4 MCG/MIN. RESPS REMAIN EVEN AND UNLABORED. SKIN WARM AND DRY. REMAINS AFEBRILE. CALL LIGHT REMAINS WITHIN REACH.
--- NOTE | 2017-06-04 02:45 | NUR ---
PT. RESTING IN BED WITH EYES CLOSED. RESPS EVEN, SHALLOW UNLABORED. REMAINS SINUS ON THE MONITOR. SLIGHTLY HYPOTENSIVE. CALL LIGHT REMAINS WITHIN REACH. WILL CONTINUE TO MONITOR.
--- NOTE | 2017-06-04 04:35 | NUR ---
IV VANCO INFUSED AT THIS TIME. NO REACTIONS NOTED. LEVOPHED DRIP CONTINUES TO INFUSE. HR REMAINS SINUS IN THE 80'S. LAB SPECIMENS OBTAINED FROM TRIPLE LUMEN. CALL LIGHT REMAINS WITHIN REACH. WILL CONTINUE TO MONITOR.
--- NOTE | 2017-06-04 05:05 | NUR ---
IV FLUIDS INFUSING PER PHYSICIAN ORDERS. CALL LIGHT REMAINS WITHIN REACH. LEVOPHED DRIP INCREASED TO 5 MCG/MIN PT. BP LOW AT 74/39. WILL CONTINUE TO ASSESS.
[2017-06-04 05:09] LABS: CREATININE 2.6 mg/dL (0.5-1.0); HEMATOCRIT 23.5 % (37.0-47.0); IMMATURE GRANULOCYTES 0.6 % (0.0-1.0); MEAN CORPUSCULAR HGB 26.2 pG CALC (26.0-32.0); MEAN CORPUSCULAR HGB CONC 29.8 g/L CALC (32.0-36.0); PLATELET COUNT 274 thou/uL (130-400); POTASSIUM 4.1 mmol/l (3.5-5.1); RED BLOOD COUNT 2.67 mill/uL (4.20-5.60); RED CELL DISTRI WIDTH 16.7 % (11.5-15.5)
[2017-06-04 06:03] LABS: BAND 11 % (0-8); MANUAL DIFFERENTIAL YES
[2017-06-04 06:04] LABS: PLATELET ESTIMATE NORMAL
--- NOTE | 2017-06-04 07:31 | NUR ---
pt asleep; easily arousable to speech; appears drowsy/easily drifts back to sleep while speaking; assessment completed at this time; pt alert to self only; denies pain; no n/v noted; resp shallow; lungs clear/diminished; skin color pale; o2 per nc at 2L; hr reg; murmur noted; weak pedal pulses; trace edema noted to ankles; refused shashi hose; abd soft with hypoactive; no bm noted per information writer at this time; no urine to inspect; no urinary incontinence noted; TLC patent to right femoral; ivf infusing as per orders/ levophed gtt at 5mcg/min; no redness or edema noted at site; lumens flushed and patent; multiple skin tear to ble; bruise to right ant/lat thigh; coccyx/sacrum noted mod red; plan of care/meds explained; call light within reach; will continue to monitor
--- NOTE | 2017-06-04 07:59 | NUR ---
resting in bed with eyes closed; drowsy; unable to stay awake for am feed; iv patent; levophed gtt cont at 5mcg/min; repositioned; will continue to monitor
--- NOTE | 2017-06-04 08:15 | NUR ---
son/family at bedside; pt repositioned; meal set up; family at bedside attempting to feed pt; will continue to monitor
--- NOTE | 2017-06-04 08:50 | NUR ---
received call from Ashley Bhatia [facility]; Ashley informed this advertising copy writer she will be in the am to see pt
--- NOTE | 2017-06-04 09:30 | NUR ---
Dr Epstein at bedside to discuss plan of care with pt and family; levophed titrated as per MD orders to wean
--- NOTE | 2017-06-04 10:10 | NUR ---
awake in bed; requesting bathroom; placed on bed montoya; small liquid brown stool noted mixed with urine; pericare per staff; repositioned to right side; po fluids provided; family at bedside; call light within reach; will continue to monitor
--- NOTE | 2017-06-04 10:30 | NUR ---
resting in bed with eyes closed; no distress noted; easily aroused; sr on monitor; call light within reach; will continue to monitor
--- NOTE | 2017-06-04 11:14 | NUR ---
Eileen Bhatia, [facility] at bedside; info provided
--- NOTE | 2017-06-04 11:19 | NUR ---
Drug Selected: Vancomycin Age: 87 years Weight: 40 kg Height: 59 in Gender: Female SCR: 2.6 mg/dl CRCL (ml/min): 9.8 DUE TO POOR RENAL FUNCTION NO ADDITIONAL DOSES NEEDED AT THIS TIME PHARMACY WILL MONITOR KIDNEY FUNCTION AND DOSE ACCORDINGLY
--- NOTE | 2017-06-04 11:39 | NUR ---
awake; yelling out "ouch"; in to assess pt; pt with complaints of "gas pains"; medicated with morphine as per orders for abd pain; lunch offered with refusal at this time; will continue to monitor
--- NOTE | 2017-06-04 12:15 | NUR ---
resting in bed with eyes partially open; appears asleep; easily aroused; denies pain/ admits to pain relief; this contract technical writer attempted to feed pt her lunch; pt refused; states "I'm just tired and have a poor appetite; repositioned for comfort; sr on monitor; call light within reach; will continue to monitor
--- NOTE | 2017-06-04 14:18 | NUR ---
pt resting in bed; offers no complaints; iv intact; sr on monitor; no urinary incont noted; call light within reach; will continue to monitor
--- NOTE | 2017-06-04 16:00 | NUR ---
appears asleep; no distress noted; resp shallow; iv intact; sr/st on monitor; bed alamr active for pt safety; call light within reach; will continue to monitor
--- NOTE | 2017-06-04 17:04 | NUR ---
awake; noted attempting to get out of bed; placed on bedpan as per request; will continue to monitor
--- NOTE | 2017-06-04 18:16 | NUR ---
resting/appears asleep; resp shallow; no distress noted; iv intact; sr on monitor; bed in lowest position; call light within reach
--- NOTE | 2017-06-04 19:00 | NUR ---
REPORT FROM Crow PATTEN RN. ASSUMED PT. CARE.
--- NOTE | 2017-06-04 19:45 | NUR ---
PT. RESTING IN BED WITH EYES CLOSED. RESPS EVEN AND UNLABORED. CALL LIGHT REMAINS WITHIN YENNY. PT. OFFERED BEDPAN, BUT DECLINES. BP HYPOTENSIVE 66/37 AT THIS TIME. WILL CONTINUE TO ASSESS.
--- NOTE | 2017-06-04 20:30 | NUR ---
FAMILY AT BEDSIDE AT THIS TIME. UPDATED ON CURRENT CONDITION AND PLAN OF CARE. PT. REMAINS RESTING WITH EYES OPEN. REMAINS HYPOTENSIVE. RESPS REMAIN EVEN AND UNLABORED. WILL CONTINUE TO MONITOR.
--- NOTE | 2017-06-04 22:15 | NUR ---
IV ANTIBIOTICS INFUSED. BP SLIGHTLY IMPROVED. RESPS REMAIN EVEN AND UNLABORED. HR STABLE AT 88 SINUS RHYTHM. CALL LIGHT REMAINS WITHIN REACH. WILL CONTINUE TO MONITOR.
--- NOTE | 2017-06-04 23:58 | NUR ---
PT. RESTING WITH EYES CLOSED. RESPS REMAIN EVEN AND UNLABORED. REMAINS HYPOTENSIVE. MD AWARE OF PT. CURRENT CONDITION. WILL CONTINUE TO MONITOR. PT. OFFERED BEDPAN, BUT DECLINED. REMAINS DRY AT THIS TIME.
[2017-06-05] VITALS (10 sets, daily range): BP systolic 61–77; BP diastolic 32–62
--- NOTE | 2017-06-05 00:32 | NUR ---
PT. REMAINS SLIGHTLY AGGITATED. OFFERED BEDPAN AND FLUIDS. PT. DECLINED BOTH. LEADS REPLACED AND GOWN REPLACED. PT. REMAINS DRY AT THIS TIME. BP REMAINS HYPOTENSIVE AT 65 SYSTOLIC. REMAINS SINUS RHYTHM. CALMING REASSURANCE PROVIDED. WILL CONTINUE TO MONITOR.
--- NOTE | 2017-06-05 01:45 | NUR ---
PT. RESTING WITH EYES CLOSED. RESPS REMAIN, EVEN, UNLABORED, SHALLOW. BP REMAINS HYPOTENSIVE. INTERMITTENTLY AGGITATED ATTEMPTING TO PULL OFF HER GOWN. GOWN REPLACED AND REASSURANCE GIVEN.
--- NOTE | 2017-06-05 03:15 | NUR ---
PT. WITH INTERMITTENT MOANING AND FACIAL GRIMACE. MEDICATED FOR PAIN AT THIS TIME. PT. UNABLE TO GIVE PAIN NUMBER.
--- NOTE | 2017-06-05 03:59 | NUR ---
PT. RESTING MORE COMFORTABLY AT THIS TIME. LESS AGGITATED. BP REMAINS HYPOTENSIVE. LAB SPECIMENS OBTAINED AT THIS TIME. WILL CONTINUE TO MONITOR.
[2017-06-05 05:47] LABS: POTASSIUM 4.4 mmol/l (3.5-5.1)
[2017-06-05 05:48] LABS: MAGNESIUM 2.3 mg/dL (1.6-2.3)
[2017-06-05 06:10] LABS: HEMATOCRIT 24.9 % (37.0-47.0); HEMOGLOBIN 7.3 g/dl (12.0-16.0); IMMATURE GRANULOCYTES 3.1 % (0.0-1.0); MEAN CELL VOLUME 89.2 fL CALC (80.0-100.0); MEAN CORPUSCULAR HGB 26.2 pG CALC (26.0-32.0); MEAN CORPUSCULAR HGB CONC 29.3 g/L CALC (32.0-36.0); PLATELET COUNT 276 thou/uL (130-400); RED BLOOD COUNT 2.79 mill/uL (4.20-5.60); RED CELL DISTRI WIDTH 16.7 % (11.5-15.5)
[2017-06-05 06:17] LABS: MANUAL DIFFERENTIAL YES
[2017-06-05 06:18] LABS: PLATELET ESTIMATE NORMAL
--- NOTE | 2017-06-05 07:17 | NUR ---
REPORT RECEIVED FROM DIAZ VARGAS. PT IN SEMIFOWLERS POSITION. NOT RESPONDING TO VERBAL OR PHYSICAL STIMULI. DOES NOT APPEAR IN PAIN, NO GRIMACING OR MOANING. RIGHT FEMORAL TRIPLE LUMEN SALINE LOCKED, DRESSING CDI, FREE FROM REDNESS AND SWELLING. O2 @ 2L VIA NC.
--- NOTE | 2017-06-05 07:45 | NUR ---
PT TURNED ONTO BACK FROM RIGHT SIDE. NO RESPONSE FROM PT DURING ACTIVITY. LINENS DRY, NO INCONTINENCE NOTED.
--- NOTE | 2017-06-05 09:29 | NUR ---
DR. MOYA IN TO SEE PT. PT HAS A VISITOR AT BEDSIDE. APPEARS COMFORATBLE. NO MOANING OR GRIMACING. UNINTELLIGIBLE RESPONSES TO VERBAL STIMULI AT THIS TIME.
--- NOTE | 2017-06-05 10:18 | NUR ---
PTS WATER/WASTEWATER ENGINEER IN TO PRAY FOR PT. AFTER WATER/WASTEWATER ENGINEER LEFT, PT TURNED ONTO LEFT SIDE. TOLERATED MOVEMENT WITHOUT ANY APPARENT PAIN OR AGITATION. CAREGIVER FROM HOME STILL AT BEDSIDE.
--- NOTE | 2017-06-05 12:10 | NUR ---
PT TURNED ONTO BACK. TOLERATED ACTIVITY WITHOUT AGITATION OR PAIN. NO VERBAL RESPONSE TO STIMULI.
--- NOTE | 2017-06-05 14:39 | NUR ---
PT TURNED ONTO RIGHT SIDE BY STAFF X 2. PT MOANING AND GRIMACING WITH MOVEMENT. MORPHINE 2 MG IV ADMINISTERED PER ORDER. WILL MONITOR FOR EFFECTIVENESS.
--- NOTE | 2017-06-05 16:45 | NUR ---
PT TURNED TO SUPINE POSITION. ATIVAN IV ADMINISTERED FOR COMFORT. NO INTELLIGIBLE SPEECH AT THIS TIME. MOANING WITH POSITION CHANGES. STILL NO URINE OUTPUT FOR THIS SHIFT.
--- NOTE | 2017-06-05 18:25 | NUR ---
PT TURNED ONTO LEFT SIDE. VISITORS X 2 ARRIVED AND ARE AT BEDSIDE.
--- NOTE | 2017-06-05 19:00 | NUR ---
PT RESTIN GIN BED. PT IS UNRESPONSIVE AT THIS TIME. RESP ARE EVEN AND UNLABORED. NO DISTRESS NOTED. LUNGS ARE DIMINISHED. HR REGULAR. PULSES PALPABLE BUT WEAK THROUGHOUT. BS HYPOACTIVE. PT NOT VOIDING AT THIS TIME. TLC IN R GROIN =. NO REDNESS OR EDEMA NOTED WILL CONTINUE TO MONITOR
--- NOTE | 2017-06-05 19:30 | NUR ---
SON AND DAUGHTER IN LAW IN ROOM WITH PATIENT. SPOKE WITH FAMILY.
--- NOTE | 2017-06-05 21:12 | NUR ---
PT MOANING TURNED TO RIGHT SIDE. WILL MEDICATE.
--- NOTE | 2017-06-05 23:35 | NUR ---
PT TURNED ON BACK
[2017-06-06] VITALS (9 sets, daily range): BP systolic 59–79; BP diastolic 35–45
--- NOTE | 2017-06-06 | NUR ---
PT RESTING IN BED. REMAINS UNRESPONSIVE. RESP ARE EVEN AND UNLABORED. NO DISTRESS NOTED. WILL CONTINUE TO MONITOR
--- NOTE | 2017-06-06 02:19 | NUR ---
TURNED PT ON LEFT SIDE AND MEDICATED FOR PAIN PT GRIMACED AND MOANED UPON TURNING
--- NOTE | 2017-06-06 04:12 | NUR ---
PT TURNED TO RIGHT SIDE. PT MOANS AND GRIMACES AT TIMES. PT REMAINS UNRESPONSIVE. WILL CONTINUE TO MONITOR
--- NOTE | 2017-06-06 06:08 | NUR ---
PT TURNED TO BACK AND MEDICATED WITH MORPHINE 2MG PER MD ORDERS FOR PAIN NOTED BY FACIAL GRIMACING AND MOANING UPON TURN. PT REMAINS UNRESPONSIVE. WILL CONTINUE TO MONITOR
--- NOTE | 2017-06-06 07:20 | NUR ---
PT RESTING IN BED, AM ASSESSMENT COMPLETED, SEE INTERVENTIONS. PT EYES OPEN AND FLINCHES WITH MOVEMENT, BUT DOES NOT RESPOND TO VERBAL STIUMLI AND DOES NOT FOLLOW COMMANDS, REAMINS HYPOTENSIVE, SKIN INTACT BUT FRAGILE, SATS MAINTAINED TELE READING ST RATE IN THE LOW 100'S. COMFORT MEASURES PROVIDED, CALL [facility] WITHIN REACH, WILL MONITOR CLOSELY.
--- NOTE | 2017-06-06 08:30 | NUR ---
FAMILY MEMBER AT BEDSIDE, UPDATE PROVIDED
--- NOTE | 2017-06-06 09:35 | NUR ---
IN TO SEE PATIENT, HOSPICE CONSULT ORDERED, WILL NOTIFY HOSPICE
--- NOTE | 2017-06-06 11:00 | NUR ---
HOSPICE CONSULTED, F[facility]ET FAXED PER REQUEST AND RECEIVED CALL FROM ABIGAIL AT HOSPICE UPDATED REGARDING CONSULT, THEY WILL CONTACT SON THUY ARVIZU.
--- NOTE | 2017-06-06 12:49 | NUR ---
no changes noted, pt remains unrepsonsive with eyes open vs reamin unchanged, call [facility] within reach, will continue to monitor
--- NOTE | 2017-06-06 13:51 | NUR ---
RASHAWN HAYES AT HOSPICE CALLED, THEY ARE WAITING FOR SON TO SIGN CONSENTS AND INTAKE NURSE JAMES SHOULD BE HERE AT 5PM THIS PM.
--- NOTE | 2017-06-06 15:38 | NUR ---
GEO GARCIA FROM PREVIOUS HOSPICE NURSE SCHEDULED TO BE HERE AT 1730 PM PER ABIGAIL FROM [facility]YLEY BUSH FROM NURSES STATION, WILL CONTINUE TO MONITOR.
--- NOTE | 2017-06-06 17:15 | NUR ---
HOSPICE NURSE AT BEDSIDE, PLANNED [facility] TO HOSPICE HOUSE THIS PM AROUND 8P
--- NOTE | 2017-06-06 19:00 | NUR ---
PT RESTING IN ON LEFT SIDE. PT TURNED TO RIGHT SIDE. PT GRIMACING ON FACE UPON TURN. PT REMAINS UNRESPONSIVE. PT IS COMFORT MEASURES ONLY. RESP ARE EVEN AND UNLABORED. O2 2L NC IN PLACE. LUNGS ARE CLEAR AND DIMINISHED. HR REGULAR. PULSES WEAK THROUGHOUT. NO EDEMA NOTED. BS HYPOACTIVE. TLC IN RIGHT GROIN. NO REDNESS OR EDEMA NOTED. WILL CONTINUE TO MONITOR
--- NOTE | 2017-06-06 21:00 | NUR ---
PT TURNED TO BACK. GRIMACING NOTED UPON MOVEMENT. PT REMAINS UNREPONSIVE. AWAITING TRANSPORT TO HOSPICE HOUSE. WILL CONTINUE TO MONITOR
--- NOTE | 2017-06-06 23:00 | NUR ---
PT TURNED TO RIGHT SIDE. GRIMACING NOTED UPON MOVEMENT. PT REMAINS UNRESPONSIVE. AWAITING TRANSPORT TO HOSPICE HOUSE. WILL CONTINUE TO MONITOR
[2017-06-07] VITALS: BP 55/30
--- NOTE | 2017-06-07 00:19 | NUR ---
REPORT GIVEN TO [facility] EMT
--- NOTE | 2017-06-07 00:21 | NUR ---
PT LEFT VIA STRETCHER WITH [facility] TO BE TRANSPORTED TO THE HOSPICE HOUSE
== END 2017-06-07 00:20 | disposition hospice, inpatient (51) | DRG 292 ==
LOC: ED 12:46 → ED-I 16:51 → ED 17:02 → ICU 17:03
PROVIDERS: Family Medicine; Nurse Practitioner Family; ADMIT Internal Medicine; ATTEND Internal Medicine
PROC: 02HV33Z Insertion of Infusion Device into Superior Vena Cava, Percutaneous Approach (ICD-10-PCS; principal; 2017-06-03)
DX: R57.9 Shock, unspecified (principal); N17.9 Acute kidney failure, unspecified; M62.82 Rhabdomyolysis; K92.2 Gastrointestinal hemorrhage, unspecified; E86.0 Dehydration; D50.0 Iron deficiency anemia secondary to blood loss (chronic); I73.9 Peripheral vascular disease, unspecified; Z66 Do not resuscitate; Z51.5 Encounter for palliative care; E03.9 Hypothyroidism, unspecified; R62.7 Adult failure to thrive; F03.90 Unspecified dementia, unspecified severity, without behavioral disturbance, psychotic disturbance, mood disturbance, and anxiety; Z95.820 Peripheral vascular angioplasty status with implants and grafts; Z87.891 Personal history of nicotine dependence
CPT/HCPCS: J0692; J2060